=== PATIENT | female | born 1980 | race Caucasian/White ===

== ENCOUNTER 2019-06-30 15:55 | Emergency (ER) | payer OTHER ==
[2019-06-30 19:05] VITALS: BP 114/92; TEMP 97.5; O2SAT 99
== END 2019-06-30 19:17 | disposition home or self-care (01) ==
LOC: ER 15:55
DX: K29.00 Acute gastritis without bleeding (principal); K59.00 Constipation, unspecified; K21.9 Gastro-esophageal reflux disease without esophagitis; J45.909 Unspecified asthma, uncomplicated; Z88.0 Allergy status to penicillin; Z88.8 Allergy status to other drugs, medicaments and biological substances; Z87.11 Personal history of peptic ulcer disease
CPT/HCPCS: 36415; 74019; 80053; 82150; 82550; 82553; 83605; 83690; 83735; 84443; 84484; 85025; A4216; J2550; J7030